=== PATIENT | female | born 1995 | race Caucasian/White ===

== ENCOUNTER 2019-10-03 14:45 | Emergency (ER) | payer BC, SELFPAY ==
[2019-10-03 14:48] VITALS: BP 104/69; PULSE 129; RESP 20; TEMP 36.8; O2SAT 98
--- NOTE | 2019-10-03 14:54 | ED.GENADULT ---
HPI - General Adult General Chief complaint: Upper Respiratory Infection Stated complaint: COUGH Time Seen by Provider: 10/03/19 14:56 Source: patient and RN notes reviewed Mode of arrival: ambulatory Limitations: no limitations History of Present Illness HPI narrative: This is a 23 years old female presents to the office for an evaluation of cough for one week. Associated with sinus congestion,ears pressure and chest tightness when she cough. She only starts taking cough drop and Nyquil for her symptoms today. Denies sick contact. She works at the [employer] and would like a work excuse. Related Data Home Medications Medication Instructions Recorded Confirmed acamprosate mg PO 10/03/19 aripiprazole [Abilify] mg 10/03/19 buspirone mg 10/03/19 clonidine HCl 10/03/19 lisdexamfetamine [Vyvanse] mg 10/03/19 venlafaxine [Effexor XR] mg PO 10/03/19 Allergies Allergy/AdvReac Type Severity Reaction Status Date / Time sulfamethoxazole Allergy Unknown Verified 01/13/17 12:53 trimethoprim Allergy Unknown Verified 01/13/17 12:53 Review of Systems Review of Systems: Narrative: CONSTITUTIONAL: Denies fever, chills ENT: Reports congestion, sore throat, otalgia. CARDIOVASCULAR: Denies chest pain except when she cough that her chest hurts RESPIRATORY: Denies dyspnea, wheezing. Reports cough GASTROINTESTINAL: Denies abdominal pain, vomiting. Reports nausea. GENITOURINARY: Denies urinary symptoms SKIN: Denies rash MUSCULOSKELETAL: Denies acute back pain NEUROLOGIC: Denies lightheaded PMFSH Past Medical History Medical History (Updated 10/03/19 @ 15:06 by BHAVANA Snow) Anxiety and depression Social History Social History (Updated 10/03/19 @ 14:59 by BHAVANA Snow) Social History: 1/2pack Smoking status: Current every day smoker Comments At time of signature, I agree with nursing past medical, surgical, social and family history. There is no relevant family history pertinent to the presenting complaint. Exam Narrative: Exam Narrative: GENERAL: This is a well-nourished, well-developed patient, in no apparent distress. EARS: External ears normal, auditory canals clear and without drainage, TMs normal without perforation. Hearing grossly intact. NOSE: External nose normal with no obvious nasal discharge, nares without redness, no rhinorrhea. THROAT: Mucous membranes moist, posterior pharynx pink with erythema. NECK: Neck supple, non-tender without lymphadenopathy, masses or thyromegaly. CARDIOVASCULAR: Regular rate and rhythm without murmurs, gallops, or rubs. RESPIRATORY: Clear to auscultation. Breath sounds equal bilaterally. No wheezes, rales, or rhonchi. GASTROINTESTINAL: Abdomen soft, non-tender, nondistended. Bowel sounds are active. No hepato-splenomegaly, or palpable masses. No guarding. SKIN: warm, intact with no suspicious lesions or rash, good texture and turgor. NEURO: awake, alert, and oriented to person, place and time. There were no obvious focal neurologic abnormalities. Steady gait Dirk Coma Scale Eye Opening: Spontaneous 4 Dirk Coma Scale Motor: Obeys Commands 6 Dirk Coma Scale Verbal: Oriented 5 Course Vital Signs Vital signs: Vital Signs Temperature 98.3 F 10/03/19 14:48 Pulse Rate 129 H 10/03/19 14:48 Respiratory Rate 10/03/19 14:48 Blood Pressure 104/69 10/03/19 14:48 Pulse Oximetry 98 10/03/19 14:48 Temperature 98.3 F 10/03/19 14:48 Pulse Rate 129 H 10/03/19 14:48 Respiratory Rate 10/03/19 14:48 Blood Pressure 104/69 10/03/19 14:48 Pulse Oximetry 98 10/03/19 14:48 Medical Decision Making MDM Narrative Medical decision making narrative: Discharge instructions reviewed with patient, as well as provided in writing per nursing staff. The instructions also include specific and strict return/GO TO THE ER as well as f/u information. All questions have been answered, and the patient deny any further questio
== END 2019-10-03 15:13 | disposition home or self-care (01) ==
PROVIDERS: Emergency Provider Nurse Practitioner
DX: J06.9 Acute upper respiratory infection, unspecified (principal); R05 Cough; F17.200 Nicotine dependence, unspecified, uncomplicated; F41.9 Anxiety disorder, unspecified; F32.9 Major depressive disorder, single episode, unspecified
CPT/HCPCS: 99213; G0463